=== PATIENT | female | born 1960 ===

== ENCOUNTER 2017-08-12 04:04 | Emergency (ER) | payer OTHER ==
[2017-08-12 04:04] VITALS: BMI 29.2
[2017-08-12 04:11] VITALS: BP 116/79; PULSE 77; RESP 16; TEMP 98; O2SAT 98
--- NOTE | 2017-08-12 04:35 | ED PDOC ---
Upper Extremity Pain/Injury Time Seen by Provider: 08/12/17 04:13 Chief Complaint (Nursing): Upper Extremity Problem/Injury Chief Complaint (Provider): left arm injury History Per: Patient History/Exam Limitations: no limitations Onset/Duration Of Symptoms: Hrs Current Symptoms Are (Timing): Still Present Additional History Per: Patient Additional Complaint(s): 56 y/o female presents with left shoulder, left arm pain x 2 hours. Patient states she rolled over in her sleep and fell out of bed, landing on left side. Patient notes old injury to left arm weeks ago, was told by PMD it was muscle pain. Denies numbness/weakness left upper extremity. Past Medical History Reviewed: Historical Data, Nursing Documentation, Vital Signs Vital Signs: Last Vital Signs Temp 98 F 08/12/17 04:08 Pulse 77 08/12/17 04:08 Resp 16 08/12/17 04:08 BP 116/79 08/12/17 04:08 Pulse Ox 98 08/12/17 04:08 - Medical History PMH: Diabetes, HTN Denies: Chronic Kidney Disease - Surgical History Surgical History: - Family History Family History: States: Unknown Family Hx - Immunization History Hx Tetanus Toxoid Vaccination: No Hx Influenza Vaccination: No Hx Pneumococcal Vaccination: No - Home Medications Home Medications: Ambulatory Orders Medication Instructions Recorded Hydrocodone/Acetaminophen [Vicodin 1 each PO QID PRN #12 tablet 01/17/16 5-300 mg Tablet] Meloxicam [Mobic] 7.5 mg PO DAILY PRN #30 tablet 04/05/16 Methocarbamol [Robaxin] 500 mg PO Q8 PRN #30 tab 04/05/16 Cyclobenzaprine [Cyclobenzaprine 10 mg PO TID #30 tab 12/27/16 HCl] Naproxen [Naprosyn] 500 mg PO BID PRN #20 tablet 12/27/16 Naproxen [Naprosyn] 500 mg PO Q12 PRN #20 tablet 08/12/17 - Allergies Allergies/Adverse Reactions: Allergies Allergy/AdvReac Type Severity Reaction Status Date / Time Penicillins Allergy RASH Verified 04/05/16 16:49 Review of Systems ROS Statement: Except As Marked, All Systems Reviewed And Found Negative Musculoskeletal: Positive for: Shoulder Pain (left), Arm Pain (left) Physical Exam - Reviewed Nursing Documentation Reviewed: Yes Vital Signs Reviewed: Yes - Physical Exam Appears: Positive for: Well, Non-toxic, No Acute Distress Head Exam: Positive for: ATRAUMATIC, NORMAL INSPECTION, NORMOCEPHALIC Skin: Positive for: Normal Color Cardiovascular/Chest: Positive for: Regular Rate, Rhythm Respiratory: Positive for: Normal Breath Sounds Extremity: Positive for: Normal ROM, Tenderness (superior left shoulder, proximal left humerus; FROM, but with tenderness), Capillary Refill (<2 sec b/l) . Negative for: Deformity, Swelling Neurologic/Psych: Positive for: Alert, Oriented. Negative for: Motor/Sensory Deficits - ECG O2 Sat by Pulse Oximetry: 98 - Other Rad xray left shoulder X-Ray: Viewed By Me X-Ray Interpretation: no acute findings xray left humerus X-Ray: Viewed By Mt X-Ray Interpretation: no acute findings - Progress ED Course And Treament: xrays, toradol Patient educated on findings, given left arm sling. Rx naproxen provided. Advised follow up PMD 2-3 days. Return to ED for worsening/concerning symptoms. Disposition - Clinical Impression Clinical Impression: Shoulder injury, Arm injury - Patient ED Disposition Is Patient to be Admitted: No Counseled Patient/Family Regarding: Studies Performed, Diagnosis, Need For Followup, Rx Given - Disposition Referrals: Afsaneh Alves [Primary Care Provider] - Disposition: Routine/Home Disposition Time: 05:15 Condition: IMPROVED Prescriptions: Naproxen [Naprosyn] 500 mg PO Q12 PRN #20 tablet PRN Reason: Pain, Moderate (4-7) Instructions: Shoulder Pain (ED), Arm Pain (ED) Print Language: KISWA[place]I
--- NOTE | 2017-08-12 10:24 | RAD ---
PROCEDURE: Radiographs of the left humerus. HISTORY: fall, pain COMPARISON: None. FINDINGS: BONES: Normal. No fracture or focal lesion. SOFT TISSUES: Normal. OTHER FINDINGS: None. IMPRESSION: Normal radiographs of left humerus.
--- NOTE | 2017-08-12 10:25 | RAD ---
PROCEDURE: Radiographs of the Left Shoulder HISTORY: fall,pain COMPARISON: No prior. FINDINGS: BONES: Normal. No fracture. JOINTS: Normal. Glenohumeral and acromioclavicular joints preserved. No osteoarthritis. SOFT TISSUES: Normal. OTHER FINDINGS: None. IMPRESSION: Normal radiographs of the left shoulder.
== END 2017-08-12 05:27 | disposition home or self-care (01) ==
LOC: H.ER 04:04
DX: S49.92XA Unspecified injury of left shoulder and upper arm, initial encounter (principal); W06.XXXA Fall from bed, initial encounter; Y92.003 Bedroom of unspecified non-institutional (private) residence as the place of occurrence of the external cause; E11.9 Type 2 diabetes mellitus without complications; I10 Essential (primary) hypertension; Z88.0 Allergy status to penicillin
CPT/HCPCS: 73030; 73060; 96372; 99282; J1885

== ENCOUNTER 2018-01-20 12:33 | Emergency (ER) | payer OTHER ==
[2018-01-20 12:33] VITALS: BMI 29.2
[2018-01-20 12:40] VITALS: BP 133/79; PULSE 87; RESP 18; TEMP 98.5; O2SAT 99
--- NOTE | 2018-01-20 13:24 | ED PDOC ---
Upper Extremity Pain/Injury Time Seen by Provider: 01/20/18 12:43 Chief Complaint (Nursing): Upper Extremity Problem/Injury Chief Complaint (Provider): Left arm pain History Per: Patient History/Exam Limitations: no limitations Onset/Duration Of Symptoms: Persistent Current Symptoms Are (Timing): Still Present Quality: "Pain" Exacerbating Factor(s): Strenuous Use Of Affected Area Additional Complaint(s): 57yo female, presents to ER for evaluation of left arm pain, which is persistent. Patient states she presents today for evaluation as she has been taking Tylenol for her symptoms with no relief. She denies any weakness, numbness or tingling of arm. No other complaints. Past Medical History Reviewed: Historical Data, Nursing Documentation, Vital Signs Vital Signs: Last Vital Signs Temp 98.5 F 01/20/18 12:38 Pulse 87 01/20/18 12:38 Resp 18 01/20/18 12:38 BP 133/79 01/20/18 12:38 Pulse Ox 99 01/20/18 12:38 - Medical History PMH: Diabetes, HTN Denies: Chronic Kidney Disease - Surgical History Surgical History: - Family History Family History: States: No Known Family Hx, Unknown Family Hx - Immunization History Hx Tetanus Toxoid Vaccination: No Hx Influenza Vaccination: No Hx Pneumococcal Vaccination: No - Home Medications Home Medications: Ambulatory Orders Medication Instructions Recorded Hydrocodone/Acetaminophen [Vicodin 1 each PO QID PRN #12 tablet 01/17/16 5-300 mg Tablet] Meloxicam [Mobic] 7.5 mg PO DAILY PRN #30 tablet 04/05/16 Methocarbamol [Robaxin] 500 mg PO Q8 PRN #30 tab 04/05/16 Cyclobenzaprine [Cyclobenzaprine 10 mg PO TID #30 tab 12/27/16 HCl] Naproxen [Naprosyn] 500 mg PO BID PRN #20 tablet 12/27/16 Naproxen [Naprosyn] 500 mg PO Q12 PRN #20 tablet 08/12/17 Naproxen [Naprosyn] 500 mg PO BID PRN #20 tablet 01/20/18 - Allergies Allergies/Adverse Reactions: Allergies Allergy/AdvReac Type Severity Reaction Status Date / Time Penicillins Allergy RASH Verified 01/20/18 12:38 Review of Systems ROS Statement: Except As Marked, All Systems Reviewed And Found Negative Musculoskeletal: Positive for: Arm Pain (left) Neurological: Negative for: Weakness, Numbness Physical Exam - Reviewed Nursing Documentation Reviewed: Yes Vital Signs Reviewed: Yes - Physical Exam Appears: Positive for: Non-toxic, No Acute Distress Head Exam: Positive for: ATRAUMATIC, NORMAL INSPECTION, NORMOCEPHALIC Skin: Positive for: Normal Color Eye Exam: Positive for: Normal appearance Neck: Positive for: Supple Cardiovascular/Chest: Positive for: Regular Rate, Rhythm Respiratory: Positive for: Normal Breath Sounds. Negative for: Respiratory Distress Extremity: Negative for: Normal ROM (Decreased ROM of left arm during abduction. ), Deformity, Swelling Neurologic/Psych: Positive for: Alert, Oriented. Negative for: Motor/Sensory Deficits - ECG O2 Sat by Pulse Oximetry: 99 (RA) Pulse Ox Interpretation: Normal Medical Decision Making Medical Decision Making: Impression: Chronic left arm pain Plan: -- Naproxen 500 mg PO -- XR left arm -- EKG X-rays and EKG normal. Scribe Attestation: Documented by Belgica Gonzalez acting as a scribe for ITZ Kemp Provider Attestation: All medical record entries made by the Scribe were at my direction and personally dictated by me. I have reviewed the chart and agree that the record accurately reflects my personal performance of the history, physical exam, medical decision making, and the department course for this patient. I have also personally directed, reviewed, and agree with the discharge instructions and disposition. Disposition - Clinical Impression Clinical Impression: Shoulder pain - Disposition Referrals: Aaron Montoya DPM [[facility]] - Disposition: Routine/Home Disposition Time: 14:17 Condition: STABLE Prescriptions: Naproxen [Naprosyn] 500 mg PO BID PRN #20 tablet PRN Reason: Pain Instructions: Shoulder Pain (DC) Forms: [employer] ([place]ese) Print Language: K[place]HILI
[2018-01-20] MEDS ORDERED: Naproxen 500 MG TAB PO STA (13:28)
[2018-01-20] MEDS ORDERED: Naproxen 500 MG TAB PO ONE (13:33)
--- NOTE | 2018-01-20 14:32 | RAD ---
PROCEDURE: Radiographs of the Left Shoulder HISTORY: left shoulder pain for months COMPARISON: Left shoulder radiographs dated 08/12/2017 FINDINGS: BONES: No acute fracture. JOINTS: Unremarkable. . SOFT TISSUES: Normal. OTHER FINDINGS: None. IMPRESSION: No demonstrated fracture or dislocation.
--- NOTE | 2018-01-20 14:33 | RAD ---
PROCEDURE: Left Hand Radiographs. HISTORY: pain COMPARISON: None. FINDINGS: BONES: No acute. JOINTS: Unremarkable. SOFT TISSUES: Normal. OTHER FINDINGS: None. IMPRESSION: No demonstrated fracture or dislocation.
--- NOTE | 2018-01-21 07:42 | CARD ---
APPROVED REPORT EKG Measurement Heart [id number] <Conclusion> Normal sinus rhythm Normal ECG
== END 2018-01-20 14:29 | disposition home or self-care (01) ==
LOC: H.ER 12:33
DX: M25.512 Pain in left shoulder (principal); E11.9 Type 2 diabetes mellitus without complications; I10 Essential (primary) hypertension; Z88.0 Allergy status to penicillin

== ENCOUNTER 2018-09-26 10:36 | Emergency (ER) | payer OTHER ==
[2018-09-26 10:36] VITALS: BMI 29.2
[2018-09-26] MEDS ORDERED: Sodium Chloride 0.9% 1,000 ML IV STA (12:26)
[2018-09-26 12:50] LABS: BASO # 0.1 K/uL (0.0-0.2); BASO % 0.9 % (0.0-2.0); EOS # 0.1 K/uL (0.0-0.7); EOS % 0.9 % (0.0-4.0); HEMOGLOBIN 13.3 g/dL (12.0-16.0); LYMPH # 4.2 K/uL (1.0-4.3); LYMPH % 64.5 % (20.0-40.0); MEAN CELL VOLUME 88.2 fl (81.0-99.0); MONO # 0.4 K/uL (0.0-0.8); MONO % 5.7 % (0.0-10.0); NEUT # 1.8 K/uL (1.8-7.0); NRBC % 0.1 % (0.0-0.0); RBC 4.43 Mil/uL (3.80-5.20); RED CELL DISTRIBUTION WIDTH 12.7 % (11.5-14.5); WHITE BLOOD COUNT 6.5 K/uL (4.8-10.8)
[2018-09-26 12:56] LABS: SQUAMOUS EPITHIAL 2 /hpf (0-5); URINE BACTERIA RARE (<OCC); URINE BILIRUBIN NEGATIVE (NEGATIVE); URINE BLOOD NEGATIVE (NEGATIVE); URINE CLARITY CLEAR (Clear); URINE COLOR YELLOW (YELLOW); URINE GLUCOSE (UA) >=500 mg/dL (Normal); URINE LEUKOCYTE ESTERASE NEG Leu/uL (Negative); URINE PROTEIN NEGATIVE (NEGATIVE); URINE UROBILINOGEN 0.2-1.0 mg/dL (0.2-1.0)
[2018-09-26 13:04] LABS: ALB/GLOB RATIO 1.3 (1.0-2.1); ALBUMIN 4.7 g/dL (3.5-5.0); ALT/SGPT 31 U/L (9-52); AST/SGOT 24 U/L (14-36); BLOOD UREA NITROGEN 14 mg/dl (7-17); CALCIUM 9.8 mg/dL (8.4-10.2); GFR NON-AFRICAN AMERICAN > 60; LIPASE 52 U/L (23-300)
--- NOTE | 2018-09-26 13:45 | ED PDOC ---
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 Pain was initially present with movement but is now constant and worse with twisting of upper body. Patient has been taking over the counter pain medications without relief. Denies fever, dysuria, hematuria, trauma, saddle parasthesia, incontinence, history of kidney stones, fever, chest pain, or SOB. PMD: Afsaneh Barlow Past Medical History Reviewed: Historical Data, Nursing Documentation, Vital Signs Vital Signs: Last Vital Signs Temp 98.4 F 09/26/18 11:33 Pulse 87 09/26/18 11:33 Resp 20 09/26/18 11:33 BP 137/79 09/26/18 11:33 Pulse Ox 97 09/26/18 11:33 - Medical History PMH: Diabetes, HTN Denies: Chronic Kidney Disease - Surgical History Surgical History: - Family History Family History: States: Unknown Family Hx - Immunization History Hx Tetanus Toxoid Vaccination: No Hx Influenza Vaccination: No Hx Pneumococcal Vaccination: No - Home Medications Home Medications: Ambulatory Orders Medication Instructions Recorded Hydrocodone/Acetaminophen [Vicodin 1 each PO QID PRN #12 tablet 01/17/16 5-300 mg Tablet] Meloxicam [Mobic] 7.5 mg PO DAILY PRN #30 tablet 04/05/16 Methocarbamol [Robaxin] 500 mg PO Q8 PRN #30 tab 04/05/16 Cyclobenzaprine [Cyclobenzaprine 10 mg PO TID #30 tab 12/27/16 HCl] RX: Naproxen [Naprosyn] 500 mg PO BID PRN #20 tablet 12/27/16 RX: Naproxen [Naprosyn] 500 mg PO Q12 PRN #20 tablet 08/12/17 RX: Naproxen [Naprosyn] 500 mg PO BID PRN #20 tablet 01/20/18 Acetaminophen [Tylenol] 325 mg PO Q6 PRN #30 tab 02/06/18 Cyclobenzaprine [Cyclobenzaprine 10 mg PO BID #14 tab 02/06/18 HCl] Lidocaine 5% [Lidoderm] 1 each TP DAILY #10 patch 02/06/18 Metaxalone [Skelaxin] 800 mg PO TID PRN #15 tablet 09/26/18 RX: Meloxicam [Mobic] 7.5 mg PO DAILY PRN #10 tab 09/26/18 - Allergies Allergies/Adverse Reactions: Allergies Allergy/AdvReac Type Severity Reaction Status Date / Time Penicillins Allergy RASH Verified 09/26/18 11:32 Review of Systems ROS Statement: Except As Marked, All Systems Reviewed And Found Negative Constitutional: Negative for: Fever Cardiovascular: Negative for: Chest Pain Respiratory: Negative for: Shortness of Breath Genitourinary Female: Negative for: Dysuria, Hematuria Musculoskeletal: Positive for: Back Pain (Left sided lower back pain radiating to the left lower quadrant). Negative for: Other (trauma) Neurological: Negative for: Other (saddle paresthesia) Physical Exam - Reviewed Nursing Documentation Reviewed: Yes Vital Signs Reviewed: Yes - Physical Exam Appears: Positive for: In Acute Distress (moderate painful distress) Head Exam: Positive for: ATRAUMATIC, NORMOCEPHALIC Skin: Positive for: Normal Color, Warm, Dry. Negative for: Rash Eye Exam: Positive for: Normal appearance Neck: Positive for: Normal, Painless ROM Cardiovascular/Chest: Positive for: Regular Rate, Rhythm. Negative for: Murmur Respiratory: Positive for: Normal Breath Sounds. Negative for: Wheezing, Respiratory Distress Gastrointestinal/Abdominal: Positive for: Tenderness (Moderate LLQ tenderness) Back: Positive for: L CVA Tenderness. Negative for: R CVA Tenderness, Vertebral Tenderness Extremity: Positive for: Normal ROM Neurologic/Psych: Positive for: Alert, Oriented. Negative for: Motor/Sensory Deficits - Laboratory Results Result Diagrams: 09/26/18 12:40 09/26/18 12:40 - ECG O2 Sat by Pulse Oximetry: 97 (RA) Pulse Ox Interpretation: Normal - Progress ED Course And Treament: CT abd/pelvis: Nonspecific mildly dilated fecalized small bowel loops within the mid abdomen. No definite transition zone or small bowel obstruction clearly seen elsewhere. Moderate residual fecal material also seen throughout the colon without pericolonic inflammatory change to suggest colitis. Pt. informed of results and advised to f/u with PMD for further evaluation but is to return to ED immediately if symptoms worsen. Condition: Re-examined, Improved Medical Decision Making Medical Decision Making: Initial Impression: abdominal/back pain Initial Plan: --CT abd/pelvis --CMP --Lipase stat --ED urine --CBC --Sodium chloride 1000mL IV --Toradol 30mg IV --Urinalysis Scribe Attestation: Documented by Castillo Palacios acting as a scribe for Tyrel MOBLEY. Provider Scribe Attestation: All medical record entries made by the Scribe were at my direction and personally dictated by me. I have reviewed the chart and agree that the record accurately reflects my personal performance of the history, physical exam, medical decision making, and the department course for this patient. I have also personally directed, reviewed, and agree with the discharge instructions and disposition. Disposition - Clinical Impression Clinical Impression: Low back pain - Patient ED Disposition Is Patient to be Admitted: No - Disposition Referrals: [facility] [Outside] Disposition: Routine/Home Disposition Time: 16:26 Condition: IMPROVED Additional Instructions: MAYITO NICOLE, thank you for letting us take care of you today. Your provider was Kenisha Chambers MD and you were treated for HIP PAIN. The emergency medical care you received today was directed at your acute symptoms. If you were prescribed any medication, please fill it and take as directed. It may take several days for your symptoms to resolve. Return to the Emergency Department if your symptoms worsen, do not improve, or if you have any other problems. Please contact your doctor or call one of the physicians/clinics you have been referred to that are listed on the Patient Visit Information form that is included in your discharge packet. Bring any paperwork you were given at discharge with you along with any medications you are taking to your follow up visit. Our treatment cannot replace ongoing medical care by a primary care provider outside of the emergency department. Thank you for allowing the [facility] team to be part of your care today. If you had an X-Ray or CT scan: A Radiologist will review the ED reading if any change in treatment is needed we will contact you. If you had a blood, urine, or wound culture: It will take several days for the results, if any change in treatment is needed we will contact you. If you had an STI test: It will take 48 hours for the results. Please call after 1 week if you have not heard back. Prescriptions: RX: Meloxicam [Mobic] 7.5 mg PO DAILY PRN #10 tab PRN Reason: Pain Metaxalone [Skelaxin] 800 mg PO TID PRN #15 tablet PRN Reason: Muscle Spasm Instructions: Low Back Pain (DC) Forms: [employer] (Danish) Print Language: BARBADIAN
[2018-09-26] MEDS ORDERED: Sodium Chloride 0.9% 50 ML IV ONE (15:25)
[2018-09-26] MEDS ORDERED: Iohexol 300 100 ML IJ ONE (15:25)
--- NOTE | 2018-09-26 16:23 | CT ---
Date of service: 09/26/2018 PROCEDURE: CT Abdomen and Pelvis with contrast HISTORY: LLQ abd pain COMPARISON: 2013 CT scan TECHNIQUE: Contrast dose: 90 mL Radiation dose: Total exam DLP = 457.61 mGy-cm. This CT exam was performed using one or more of the following dose reduction techniques: Automated exposure control, adjustment of the mA and/or kV according to patient size, and/or use of iterative reconstruction technique. FINDINGS: LOWER THORAX: Minimal atelectatic changes without infiltrate or effusion. Visualized esophagus shows no evidence of wall thickening. Minimal hiatal hernia is not excluded. Visualized stomach shows no evidence of wall thickening or distention. Duodenum is unremarkable. LIVER: Liver is moderately fatty infiltrated, without evidence of focal mass or intrahepatic ductal dilatation. Small amount of focal fatty sparing is seen adjacent to the gallbladder. GALLBLADDER AND BILE DUCTS: Unremarkable. PANCREAS: Unremarkable. No gross lesion or ductal dilatation. SPLEEN: Unremarkable. ADRENALS: Unremarkable. No mass. KIDNEYS AND URETERS: There is evidence of a previously identified nonobstructing calculus in the lower pole the right kidney. This measures 8 millimeters in size. Tiny upper pole right renal calculus is also not excluded. No hydronephrosis, perinephric change, or abnormal enhancement is seen in the kidneys. Ureters are unremarkable. VASCULATURE: Unremarkable. No aortic aneurysm. No aortic atherosclerotic calcification or mural plaque present. BOWEL: No colonic wall thickening or pericolonic inflammatory changes are noted. Mild to moderate residual fecal material is seen throughout the colon. There is however some moderate dilated and fecalized small bowel loop seen in the central abdomen which appear to represent mid the distal jejunal loops. Largest small bowel loop is seen on axial images 82 through 108 series 3 with additional loops noted just lateral to this region on the right. No appreciable bowel wall thickening is noted. Some milder areas of stool filled small bowel may also be seen proximal to this larger region. APPENDIX: Normal appendix. PERITONEUM: No ascites is seen. No pneumoperitoneum is seen. LYMPH NODES: Unremarkable. No enlarged lymph nodes. BLADDER: Unremarkable. REPRODUCTIVE: There may be prior hysterectomy. No adnexal masses are noted. BONES: No acute fracture. OTHER FINDINGS: None. IMPRESSION: Nonspecific mildly dilated fecalized small bowel loops within the mid abdomen. No definite transition zone or small bowel obstruction clearly seen elsewhere. Moderate residual fecal material also seen throughout the colon without pericolonic inflammatory change to suggest colitis. No ascites or free air seen. Fatty infiltration of the liver.
[2018-09-26 17:01] VITALS: BP 127/78; PULSE 75; RESP 15; TEMP 98.2
[2018-09-26 19:33] VITALS: O2SAT 97
== END 2018-09-26 17:01 | disposition home or self-care (01) ==
LOC: H.ER 10:36
DX: R10.32 Left lower quadrant pain (principal); M54.5 Low back pain; E11.9 Type 2 diabetes mellitus without complications; I10 Essential (primary) hypertension; Z88.0 Allergy status to penicillin
CPT/HCPCS: 74177; 80053; 81003; 83690; 85025; 96374; 96375; 99284; J1885; J2270; J2405; J7030; Q9967

== ENCOUNTER 2018-10-03 21:29 | Emergency (ER) | payer OTHER ==
[2018-10-03 21:29] VITALS: BMI 29.2
[2018-10-03 21:41] VITALS: O2SAT 98
[2018-10-03] MEDS ORDERED: Sodium Chloride 0.9% 1,000 ML IV STA (22:05)
[2018-10-03 22:24] LABS: BASO # 0.1 K/uL (0.0-0.2); BASO % 0.9 % (0.0-2.0); EOS # 0.1 K/uL (0.0-0.7); EOS % 1.2 % (0.0-4.0); HEMOGLOBIN 12.7 g/dL (12.0-16.0); LYMPH # 5.2 K/uL (1.0-4.3); LYMPH % 69.4 % (20.0-40.0); MEAN CELL VOLUME 88.9 fl (81.0-99.0); MEAN CORPUSCULAR HEMOGLOBIN 29.9 pg (27.0-31.0); MEAN CORPUSCULAR HGB CONC 33.7 g/dL (33.0-37.0); MEAN PLATELET VOLUME 9.1 fl (7.2-11.7); MONO # 0.4 K/uL (0.0-0.8); NEUT # 1.7 K/uL (1.8-7.0); NEUT % 22.5 % (50.0-75.0); NRBC % 0.1 % (0.0-0.0); RBC 4.25 Mil/uL (3.80-5.20); RED CELL DISTRIBUTION WIDTH 13.1 % (11.5-14.5); WHITE BLOOD COUNT 7.5 K/uL (4.8-10.8)
--- NOTE | 2018-10-03 22:25 | ED PDOC ---
HPI: Abdomen Time Seen by Provider: 10/03/18 21:46 Chief Complaint (Nursing): Abdominal Pain Chief Complaint (Provider): Abdominal Pain History Per: Patient History/Exam Limitations: no limitations Onset/Duration Of Symptoms: Days (1x) Current Symptoms Are (Timing): Still Present Severity: Moderate Location Of Pain/Discomfort: Diffuse Associated Symptoms: denies: Fever, Chest Pain, Constipation, Urinary Symptoms, Other (shortness of breath) Additional Complaint(s): 58 year old female with a past medical history of diabetes and a past surgical history of a hysterectomy presents to the ED for an evaluation of abdominal pain of 1x day. Patient was seen in the ED for similar complaints 1x week ago, CT abdomen and pelvis showed possible mild constipation. Patient states she has been taking fiber supplements as prescribed by her PMD and states that she has had a return of normal bowel movements, but her abdominal pain acutely worsened today, and radiates to the front of her right leg. Patient denies having urinary symptoms, fevers, shortness of breath, and chest pain. PMD: Afsaneh Alves MD Past Medical History Reviewed: Historical Data, Nursing Documentation, Vital Signs Vital Signs: Last Vital Signs Temp 97.9 F 10/03/18 21:37 Pulse 73 10/03/18 21:37 Resp 16 10/03/18 21:37 BP 117/73 10/03/18 21:37 Pulse Ox 98 10/03/18 21:37 - Medical History PMH: Diabetes, HTN Denies: Chronic Kidney Disease - Surgical History Surgical History: Other surgeries: hysterectomy - Family History Family History: States: Unknown Family Hx - Social History Current smoker - smoking cessation education provided: No Alcohol: None Drugs: Denies - Immunization History Hx Tetanus Toxoid Vaccination: No Hx Influenza Vaccination: No Hx Pneumococcal Vaccination: No - Home Medications Home Medications: Ambulatory Orders Medication Instructions Recorded Hydrocodone/Acetaminophen [Vicodin 1 each PO QID PRN #12 tablet 01/17/16 5-300 mg Tablet] Meloxicam [Mobic] 7.5 mg PO DAILY PRN #30 tablet 04/05/16 Methocarbamol [Robaxin] 500 mg PO Q8 PRN #30 tab 04/05/16 Cyclobenzaprine [Cyclobenzaprine 10 mg PO TID #30 tab 12/27/16 HCl] Naproxen [Naprosyn] 500 mg PO BID PRN #20 tablet 12/27/16 Naproxen [Naprosyn] 500 mg PO Q12 PRN #20 tablet 08/12/17 Naproxen [Naprosyn] 500 mg PO BID PRN #20 tablet 01/20/18 Acetaminophen [Tylenol] 325 mg PO Q6 PRN #30 tab 02/06/18 Cyclobenzaprine [Cyclobenzaprine 10 mg PO BID #14 tab 02/06/18 HCl] Lidocaine 5% [Lidoderm] 1 each TP DAILY #10 patch 02/06/18 Meloxicam [Mobic] 7.5 mg PO DAILY PRN #10 tab 09/26/18 Metaxalone [Skelaxin] 800 mg PO TID PRN #15 tablet 09/26/18 Naproxen [Naprosyn] 500 mg PO Q12 #14 tab 10/03/18 Nitrofurantoin Macrocrystals 100 mg PO BID #14 cap 10/03/18 [Macrobid] - Allergies Allergies/Adverse Reactions: Allergies Allergy/AdvReac Type Severity Reaction Status Date / Time Penicillins Allergy RASH Verified 09/26/18 11:32 Review of Systems ROS Statement: Except As Marked, All Systems Reviewed And Found Negative Constitutional: Negative for: Fever Cardiovascular: Negative for: Chest Pain Respiratory: Negative for: Shortness of Breath Gastrointestinal: Positive for: Abdominal Pain (radiates to front of right leg). Negative for: Constipation Genitourinary Female: Negative for: Dysuria, Frequency, Incontinence, Hematuria Physical Exam - Reviewed Nursing Documentation Reviewed: Yes Vital Signs Reviewed: Yes - Physical Exam Appears: Positive for: Well, Non-toxic, Uncomfortable Head Exam: Positive for: ATRAUMATIC, NORMOCEPHALIC Skin: Positive for: Normal Color Cardiovascular/Chest: Positive for: Regular Rate, Rhythm Respiratory: Positive for: Normal Breath Sounds Gastrointestinal/Abdominal: Positive for: Tenderness (diffuse abdominal tenderness) Neurologic/Psych: Positive for: Alert, Oriented (3x) - Laboratory Results Result Diagrams: 10/03/18 22:21 10/03/18 22:21 - ECG O2 Sat by Pulse Oximetry: 98 (RA) Pulse Ox Interpretation: Normal Medical Decision Making Medical Decision Makin:46 Initial impression: 58 year old female with recurring abdominal pain Initial plan: * EKG * CMP * lipase * udip * CBC with differential * glucose, POC * IV NS 1,000 ml IV 1,000 mls/hr * accucheck * toradol 15 mg IVP 1138 Labs reviewed for no clinically significant abnormalities although it appears patient has a borderline UTI secondary to 5 white blood cells. Patient reports improvement of symptoms and is stable for discharge but will be treated for UTI with diagnosis of UTI and abdominal pain. Scribe Attestation: Documented byKenisha Thayer, acting as a scribe for Shahab Ramsey MD. Provider Scribe Attestation: All medical record entries made by the Scribe were at my direction and personally dictated by me. I have reviewed the chart and agree that the record accurately reflects my personal performance of the history, physical exam, medical decision making, and the department course for this patient. I have also personally directed, reviewed, and agree with the discharge instructions and disposition. Disposition - Clinical Impression Clinical Impression: UTI (urinary tract infection) - Patient ED Disposition Is Patient to be Admitted: No Counseled Patient/Family Regarding: Studies Performed, Diagnosis, Rx Given - Disposition Disposition: Routine/Home Disposition Time: 23:40 Condition: STABLE Prescriptions: Naproxen [Naprosyn] 500 mg PO Q12 #14 tab Nitrofurantoin Macrocrystals [Macrobid] 100 mg PO BID #14 cap Instructions: Urinary Tract Infections in Adults Forms: [id number] (Lithuanian) Print Language: ALBANIAN
[2018-10-03 22:39] LABS: ALB/GLOB RATIO 1.3 (1.0-2.1); ALBUMIN 4.5 g/dL (3.5-5.0); ALT/SGPT 34 U/L (9-52); AST/SGOT 25 U/L (14-36); BLOOD UREA NITROGEN 19 mg/dl (7-17); CALCIUM 9.6 mg/dL (8.4-10.2); GFR NON-AFRICAN AMERICAN > 60; LIPASE 50 U/L (23-300)
[2018-10-03 22:41] LABS: SQUAMOUS EPITHIAL < 1 /hpf (0-5); URINE BILIRUBIN NEGATIVE (NEGATIVE); URINE BLOOD NEGATIVE (NEGATIVE); URINE CLARITY CLEAR (Clear); URINE COLOR YELLOW (YELLOW); URINE GLUCOSE (UA) NEG (Normal); URINE LEUKOCYTE ESTERASE TRACE Leu/uL (Negative); URINE PROTEIN NEGATIVE (NEGATIVE); URINE UROBILINOGEN 0.2-1.0 mg/dL (0.2-1.0)
[2018-10-03 23:47] VITALS: BP 103/61; PULSE 67; RESP 18; TEMP 97.6
--- NOTE | 2018-10-04 10:46 | CARD ---
APPROVED REPORT Date of service: 10/03/2018 EKG Measurement Heart [id number] <Conclusion> Sinus rhythm with 1st degree AV block Otherwise normal ECG
== END 2018-10-03 23:53 | disposition home or self-care (01) ==
LOC: H.ER 21:29
DX: R39.0 Extravasation of urine (principal); E11.9 Type 2 diabetes mellitus without complications; I10 Essential (primary) hypertension; I44.0 Atrioventricular block, first degree; Z88.0 Allergy status to penicillin; N39.0 Urinary tract infection, site not specified
CPT/HCPCS: 80053; 81003; 82948; 83690; 85025; 93005; 96361; 96374; 99283; J1885; J7030

== ENCOUNTER 2019-03-28 10:35 | Emergency (ER) | payer MEDICAID, OTHER ==
[2019-03-28 10:44] VITALS: RESP 18; O2SAT 98; BMI 27.8
[2019-03-28] MEDS ORDERED: Sodium Chloride 0.9% 1,000 ML IV STA (11:29)
--- NOTE | 2019-03-28 11:32 | ED PDOC ---
HPI: Abdomen Time Seen by Provider: 03/28/19 10:51 Chief Complaint (Nursing): Abdominal Pain Chief Complaint (Provider): abdominal pain History Per: Patient History/Exam Limitations: no limitations Additional Complaint(s): 58 y/o F with hx of DM and multiple abdominal surgeries who presents with LLQ abdominal pain 4 days and radiation of pain to left flank since yesterday. Denies fever, chills, N/V, diarrhea, dysuria or vaginal discharge. Last BM this morning. Pain has been constant and has taken Tylenol with no improvement, last yesterday. Past Medical History Vital Signs: Last Vital Signs Temp 97.9 F 03/28/19 10:43 Pulse 70 03/28/19 10:43 Resp 18 03/28/19 10:43 BP 129/82 03/28/19 10:43 Pulse Ox 98 03/28/19 10:43 Primary Care Provider: Afsaneh Alves - Medical History PMH: Diabetes, HTN Denies: Chronic Kidney Disease - Surgical History Surgical History: - Family History Family History: States: Unknown Family Hx - Immunization History Hx Tetanus Toxoid Vaccination: No Hx Influenza Vaccination: No Hx Pneumococcal Vaccination: No - Home Medications Home Medications: Ambulatory Orders Medication Instructions Recorded Hydrocodone/Acetaminophen [Vicodin 1 each PO QID PRN #12 tablet 01/17/16 5-300 mg Tablet] Meloxicam [Mobic] 7.5 mg PO DAILY PRN #30 tablet 04/05/16 Methocarbamol [Robaxin] 500 mg PO Q8 PRN #30 tab 04/05/16 Cyclobenzaprine [Cyclobenzaprine 10 mg PO TID #30 tab 12/27/16 HCl] Naproxen [Naprosyn] 500 mg PO BID PRN #20 tablet 12/27/16 Naproxen [Naprosyn] 500 mg PO Q12 PRN #20 tablet 08/12/17 Naproxen [Naprosyn] 500 mg PO BID PRN #20 tablet 01/20/18 Acetaminophen [Tylenol] 325 mg PO Q6 PRN #30 tab 02/06/18 Cyclobenzaprine [Cyclobenzaprine 10 mg PO BID #14 tab 02/06/18 HCl] Lidocaine 5% [Lidoderm] 1 each TP DAILY #10 patch 02/06/18 Meloxicam [Mobic] 7.5 mg PO DAILY PRN #10 tab 09/26/18 Metaxalone [Skelaxin] 800 mg PO TID PRN #15 tablet 09/26/18 Naproxen [Naprosyn] 500 mg PO Q12 #14 tab 10/03/18 Nitrofurantoin Macrocrystals 100 mg PO BID #14 cap 10/03/18 [Macrobid] Polyethylene Glycol 3350 [Miralax] 17 gm PO DAILY 7 Days ml 03/28/19 guaiFENesin/Dextromethorphan 10 ml PO Q4 PRN 7 Days udc 03/28/19 [guaiFENesin-DM] - Allergies Allergies/Adverse Reactions: Allergies Allergy/AdvReac Type Severity Reaction Status Date / Time Penicillins Allergy RASH Verified 09/26/18 11:32 Review of Systems Constitutional: Negative for: Fever, Chills Gastrointestinal: Positive for: Abdominal Pain. Negative for: Nausea, Vomiting, Diarrhea Genitourinary Female: Negative for: Dysuria, Frequency Musculoskeletal: Positive for: Back Pain Physical Exam - Reviewed Nursing Documentation Reviewed: Yes Vital Signs Reviewed: Yes - Physical Exam Appears: Positive for: Uncomfortable Skin: Positive for: Normal Color Cardiovascular/Chest: Positive for: Regular Rate, Rhythm Respiratory: Positive for: Normal Breath Sounds Gastrointestinal/Abdominal: Positive for: Soft, Tenderness (LLQ tenderness on palpation). Negative for: Distended, Guarding, Rebound Back: Positive for: L CVA Tenderness, R CVA Tenderness. Negative for: Decreased ROM Neurological/Psych: Positive for: Awake, Alert, Oriented - Laboratory Results Result Diagrams: 03/28/19 12:32 03/28/19 12:32 - ECG O2 Sat by Pulse Oximetry: 98 Medical Decision Making Medical Decision Making: CBC, CMP, lipase CT abd/pelvis w/o contrast Normal saline 1L IV x 1 Toradol 30mg IV x 1 CT scan abd/pelvis w/o contrast: FINDINGS: LOWER THORAX: Unremarkable. LIVER: Hepatic steatosis pattern is not significantly changed in the interval. No mass or intrahepatic biliary dilatation appreciable. GALLBLADDER AND BILE DUCTS: Unremarkable. PANCREAS: Unremarkable. No gross lesion or ductal dilatation. SPLEEN: Unremarkable. ADRENALS: Unremarkable. No mass. KIDNEYS AND URETERS: Unremarkable. No hydronephrosis. No solid mass. VASCULATURE: Unremarkable. No aortic aneurysm. No aortic atherosclerotic calcification or mural plaque present. BOWEL: Evaluation of the gastrointestinal tract is limited due to the lack of oral contrast administration. Prominent fecal loading is seen throughout the colon though not quite as prominent as previously shown. No gross mural thickening. Small bowel caliber appears normal throughout. APPENDIX: Normal appendix. PERITONEUM: Unremarkable. No free fluid. No free air. LYMPH NODES: Unremarkable. No enlarged lymph nodes. BLADDER: Unremarkable. REPRODUCTIVE: Prior hysterectomy reiterated. BONES: No acute fracture. OTHER FINDINGS: None. IMPRESSION: 1. No definitive acute abdominal or pelvic findings as discussed above. 2. Prior fecalized small bowel pattern has resolved with prominent retained fecal material appreciated throughout the colon though somewhat less than previously shown on CT 09/26/2018. No gross mural thickening or pericolic reaction to suggest definite mass or colitis type pattern. 3. Hepatic steatosis reiterated. 4. Prior hysterectomy reiterated. 14:30: Re-evaluated: Pt states that her pain is unchanged. CT scan results discussed and patient states that she is not surprised because she never has loose or regular BMs. She had a normal BM for her yesterday but it is usually very little. Also states that she has had a cough for the past week, non- productive, occasional SOB while not coughing, no fevers. CXR PA and lateral ordered. Pt advised to take Miralax daily to help with constipation and return instructions given. CXR: no active disease. Stable for d/c home. Disposition - Clinical Impression Clinical Impression: Abdominal pain, Constipation - Patient ED Disposition Is Patient to be Admitted: No Counseled Patient/Family Regarding: Studies Performed, Diagnosis, Need For Followup - Disposition Referrals: Afsaneh Alves [Family Provider] - Disposition: Routine/Home Disposition Time: 14:40 Condition: STABLE Additional Instructions: Follow up with Dr. Alves within the next 2 - 3 days. Return to ER if your symptoms worsen. Take Miralax daily to help with constipation. Take Robitussin as needed for cough. Prescriptions: guaiFENesin/Dextromethorphan [guaiFENesin-DM] 10 ml PO Q4 PRN 7 Days udc PRN Reason: Cough And Congestion Polyethylene Glycol 3350 [Miralax] 17 gm PO DAILY 7 Days ml Instructions: Constipation, Adult (DC), Acute Abdomen (Belly Pain), Adult (DC) Forms: [employer] (Armenian) Print Language: PRYDEINIG
[2019-03-28 12:37] LABS: BASO # 0.1 K/uL (0.0-0.2); EOS # 0.1 K/uL (0.0-0.7); EOS % 1.8 % (0.0-4.0); HEMOGLOBIN 13.4 g/dL (12.0-16.0); LYMPH # 3.7 K/uL (1.0-4.3); LYMPH % 64.2 % (20.0-40.0); MEAN CELL VOLUME 88.8 fl (81.0-99.0); MEAN CORPUSCULAR HEMOGLOBIN 29.5 pg (27.0-31.0); MEAN CORPUSCULAR HGB CONC 33.2 g/dL (33.0-37.0); MEAN PLATELET VOLUME 9.4 fl (7.2-11.7); MONO # 0.3 K/uL (0.0-0.8); MONO % 5.4 % (0.0-10.0); NEUT # 1.6 K/uL (1.8-7.0); NEUT % 27.6 % (50.0-75.0); NRBC % 0.1 % (0.0-0.0); RBC 4.54 Mil/uL (3.80-5.20); RED CELL DISTRIBUTION WIDTH 12.9 % (11.5-14.5); WHITE BLOOD COUNT 5.7 K/uL (4.8-10.8)
[2019-03-28 12:43] LABS: SQUAMOUS EPITHIAL 1 /hpf (0-5); URINE BILIRUBIN NEGATIVE (NEGATIVE); URINE BLOOD NEGATIVE (NEGATIVE); URINE CLARITY CLEAR (Clear); URINE COLOR YELLOW (YELLOW); URINE GLUCOSE (UA) >=500 mg/dL (NEGATIVE); URINE LEUKOCYTE ESTERASE NEG Leu/uL (Negative); URINE PROTEIN NEGATIVE (NEGATIVE); URINE UROBILINOGEN 0.2-1.0 mg/dL (0.2-1.0)
[2019-03-28 12:45] LABS: ALB/GLOB RATIO 1.4 (1.0-2.1); ALBUMIN 4.6 g/dL (3.5-5.0); ALT/SGPT 31 U/L (9-52); AST/SGOT 22 U/L (14-36); BLOOD UREA NITROGEN 14 mg/dl (7-17); CALCIUM 9.4 mg/dL (8.4-10.2); GFR NON-AFRICAN AMERICAN > 60; LIPASE 66 U/L (23-300)
[2019-03-28] MEDS ORDERED: Sodium Chloride 0.9% 50 ML IV ONE (13:09)
[2019-03-28] MEDS ORDERED: Iohexol 300 100 ML IJ ONE (13:09)
--- NOTE | 2019-03-28 13:49 | CT ---
Date of service: 03/28/2019 PROCEDURE: CT Abdomen and Pelvis with contrast HISTORY: LLQ pain x 3 days radiating to left flank x 1 day COMPARISON: None. TECHNIQUE: Normal harris-white matter differentiation and density are appreciated throughout the cerebrum and cerebellum with the brainstem appearing unremarkable as well. There is no mass effect. There is no suspicious extra-axial fluid collection and the midline brain anatomy appears diffusely unremarkable. Contrast dose: Omnipaque 300, 95 cc Radiation dose: Total exam DLP = 483.67 mGy-cm. This CT exam was performed using one or more of the following dose reduction techniques: Automated exposure control, adjustment of the mA and/or kV according to patient size, and/or use of iterative reconstruction technique. FINDINGS: LOWER THORAX: Unremarkable. LIVER: Hepatic steatosis pattern is not significantly changed in the interval. No mass or intrahepatic biliary dilatation appreciable. GALLBLADDER AND BILE DUCTS: Unremarkable. PANCREAS: Unremarkable. No gross lesion or ductal dilatation. SPLEEN: Unremarkable. ADRENALS: Unremarkable. No mass. KIDNEYS AND URETERS: Unremarkable. No hydronephrosis. No solid mass. VASCULATURE: Unremarkable. No aortic aneurysm. No aortic atherosclerotic calcification or mural plaque present. BOWEL: Evaluation of the gastrointestinal tract is limited due to the lack of oral contrast administration. Prominent fecal loading is seen throughout the colon though not quite as prominent as previously shown. No gross mural thickening. Small bowel caliber appears normal throughout. APPENDIX: Normal appendix. PERITONEUM: Unremarkable. No free fluid. No free air. LYMPH NODES: Unremarkable. No enlarged lymph nodes. BLADDER: Unremarkable. REPRODUCTIVE: Prior hysterectomy reiterated. BONES: No acute fracture. OTHER FINDINGS: None. IMPRESSION: 1. No definitive acute abdominal or pelvic findings as discussed above. 2. Prior fecalized small bowel pattern has resolved with prominent retained fecal material appreciated throughout the colon though somewhat less than previously shown on CT 09/26/2018. No gross mural thickening or pericolic reaction to suggest definite mass or colitis type pattern. 3. Hepatic steatosis reiterated. 4. Prior hysterectomy reiterated.
[2019-03-28] MEDS ORDERED: POLYETHYLENE GLYCOL 3350 17 GM/Dose PACKET PO STA (14:45)
--- NOTE | 2019-03-28 16:08 | RAD ---
Date of service: 03/28/2019 HISTORY: shortness of breath, cough COMPARISON: 04/03/2015 TECHNIQUE: Chest PA and lateral views FINDINGS: LUNGS: No active pulmonary disease. PLEURA: No significant pleural effusion identified. No pneumothorax apparent. CARDIOVASCULAR: No aortic atherosclerotic calcification present. Normal cardiac size. No pulmonary vascular congestion. OSSEOUS STRUCTURES: No significant abnormalities. VISUALIZED UPPER ABDOMEN: Normal. OTHER FINDINGS: None. IMPRESSION: No active disease. No significant interval change compared to the prior examination(s). Concordant results with the preliminary interpretation rendered by the emergency department physician procedure.
[2019-03-28 16:26] VITALS: BP 127/71; PULSE 78; TEMP 98
== END 2019-03-28 16:19 | disposition home or self-care (01) ==
LOC: H.ER 10:35
DX: R10.9 Unspecified abdominal pain (principal); K59.00 Constipation, unspecified; E11.9 Type 2 diabetes mellitus without complications; Z79.899 Other long term (current) drug therapy; Z88.0 Allergy status to penicillin
CPT/HCPCS: 71046; 74177; 80053; 81003; 83690; 85025; 96374; 99285; J1885; J7030; Q9967